=== PATIENT | male | born 1955 | race African-American/Black ===

== ENCOUNTER 2021-06-01 03:38 | Emergency (ER) | payer MEDICARE, MEDICAID ==
[~2021-06-01] VITALS: Ht 177.8 cm; Wt 91.0 kg
[2021-06-01 03:40] VITALS: BP 144/90
== END 2021-06-01 05:10 | disposition left against medical advice (07) ==
LOC: ER 03:38
DX: Z53.21 Procedure and treatment not carried out due to patient leaving prior to being seen by health care provider (principal)

== ENCOUNTER 2022-05-28 02:56 | Emergency (ER) | payer MEDICARE, MEDICAID ==
[~2022-05-28] VITALS: Ht 172.7 cm; Wt 82.0 kg
[2022-05-28] MEDS ORDERED: MORPHINE SULFATE 4 MG/ML CPJ (NOT FOR IM USE) IV ONE (03:30)
[2022-05-28] MEDS ORDERED: PROPOFOL 200MG/20ML VIAL IV ONE (04:45)
[2022-05-28] MEDS ORDERED: MORP15TA67 MT (05:58)
[2022-05-28] MEDS ORDERED: TOPUD PO (05:58)
[2022-05-28] MEDS ORDERED: IBUP-2028 MT (05:58)
[2022-05-28] MEDS ORDERED: ACETAMINOPHEN 325MG TABLET PO ONE (07:45)
[2022-05-28] MEDS ORDERED: IBUPROFEN 400MG TABLET PO ONE (07:45)
[2022-05-28 09:48] VITALS: BP 132/74
== END 2022-05-28 14:26 | disposition home or self-care (01) ==
LOC: ER 03:12
DX: S82.891A Other fracture of right lower leg, initial encounter for closed fracture (principal); F17.210 Nicotine dependence, cigarettes, uncomplicated; Y08.89XA Assault by other specified means, initial encounter; Y93.9 Activity, unspecified; Y92.9 Unspecified place or not applicable
CPT/HCPCS: 73590; 73610; 96374; 99152; 99285; J2270; J2704

== ENCOUNTER 2023-05-20 21:13 | Emergency (ER) | payer BC ==
[~2023-05-20] VITALS: Ht 172.7 cm; Wt 73.0 kg
[~2023-05-20 21:13] MED LIST: IBUP-2028 MT; MORP15TA67 MT; TOPUD PO
[2023-05-20 21:30] VITALS: BP 143/72; PULSE 97; RESP 16; TEMP 98.5; O2SAT 100
[2023-05-20] MEDS ORDERED: ACETAMINOPHEN 325MG TABLET PO ONE (22:00)
[2023-05-21] MEDS ORDERED: OXYM30SP26 BOTHNSTRLS (00:25)
[2023-05-21] MEDS ORDERED: TOPUD PO (00:25)
== END 2023-05-21 00:42 | disposition home or self-care (01) ==
LOC: ER 21:13
DX: S02.839A Fracture of medial orbital wall, unspecified side, initial encounter for closed fracture (principal); I10 Essential (primary) hypertension; F14.10 Cocaine abuse, uncomplicated; Z79.899 Other long term (current) drug therapy; V49.49XA Driver injured in collision with other motor vehicles in traffic accident, initial encounter; Y93.89 Activity, other specified; Y92.89 Other specified places as the place of occurrence of the external cause; Y99.8 Other external cause status
CPT/HCPCS: 70486; 73552; 73590; 73620; 99284